=== PATIENT | female | born 1955 | race Two or more races ===

== ENCOUNTER → 2016-06-10 | Outpatient (CLI) | payer OTHER ==
[~2016-06-10] MED LIST: AMBIEN PO; COREG PO; COZAAR PO; GLUCOPHAGE500 M1 PO; LIPITOR PO
== END | disposition home or self-care (01) ==
LOC: CSSDAY 15:00
DX: D50.9 Iron deficiency anemia, unspecified (principal); K90.9 Intestinal malabsorption, unspecified; Z79.899 Other long term (current) drug therapy
CPT/HCPCS: 96374; Q0138

== ENCOUNTER → 2016-06-17 | Outpatient (CLI) | payer OTHER | END | disposition home or self-care (01) | LOC: CSSDAY 15:25 | DX: D50.9 Iron deficiency anemia, unspecified (principal); K90.9 Intestinal malabsorption, unspecified; Z79.899 Other long term (current) drug therapy | CPT/HCPCS: 96374; Q0138 ==